=== PATIENT | male | born 1945 | race Caucasian/White ===

== ENCOUNTER → 2017-12-17 09:35 | Outpatient (CLI) | payer MEDICARE, BC ==
--- NOTE | ~2017-12-17 | EC ---
PATIENT:CORY PORRAS DATE OF SERVICE: 12/17/17 SEX: M MEDICAL RECORD: [id number] DATE OF : 41 [facility] AGE OF PATIENT: 71 ADMISSION DATE: 12/17/17 REFERRING PHYSICIAN: INTERPRETING PHYSICIAN: DAVIN GREER MD ECHOCARDIOGRAM REPORT ECHO CHARGES 4 ECHO COMPLETE Date: 12/17 CLINICAL DIAGNOSIS: STARTING CHEMO, ASSESS EF AND VALVES ECHOCARDIOGRAPHIC MEASUREMENTS (adult normal given) AC root (d.<3.7cm) 4.2 cm LV Septum d (<1.2 cm> 2.0 cm Valve Excursion 2.1 cm LV Septum (systole) 2.3 cm Left Atria (s.<4.0cm> 4.9 cm LVPW d(<1.2cm) 1.8 cm RV (d.<2.3cm) 3.8 cm LVPW (sytole) 21.5 cm LV diastole(<5.6CM) 5.3 cm MV E-F(>70mm/sec) cm LV systole 3.8 cm LVOT Diameter 2.1 cm MV exc.(>10mm) 1.4 cm Est.ejection fraction (50-75%) % DOPPLER: LVIT cm/sec A 84.0 cm/sec E 62.0 cm/sec LA cm/sec RVSP 31 mmHg LVOT 129 cm/sec AOP1/2T m/s Asc. Ao 140 cm/sec RVOT 91 cm/sec RA cm/sec PA 196 cm/sec AV Gradient Peak 7.89 mmHg AV Mean 3.93 mmHg AV Area 3.2 cm MV Gradient Peak 3.95 mmHg MV Mean 1.20 mmHg MV Area cm COMMENTS: Bookstore Manager: Len LEUNG Supervisor Long Goods: 2 Dr. Barton TAPE# PACS Pericardial Effusion N DATE OF SERVICE: 12/17/2017 PROCEDURE: Echocardiogram. FINDINGS: 1. Left ventricular chamber size is within normal limits. Left ventricular systolic function is normal. Overall ejection fraction estimated at 60%. 2. Left atrium is enlarged at 4.9 cm. Right atrium and right ventricle chamber sizes are as well mildly dilated. 3. Valvular structures have normal structure and motion. ECHOCARDIOGRAM REPORT [id number] CORY PORRAS 4. Doppler interrogation only reveals mild tricuspid regurgitation, no other valvular insufficiency or stenosis. 5. No evidence of pericardial effusion or left ventricular thrombus. TRANSINT:[id number] Voice Confirmation ID: [id number] DOCUMENT ID: [id number] DAVIN GREER MD at 1849 CC: [id number] DICTATION DATE: 12/17/17 1308 NEUROPHYSIOLOGIST: 12/17/17 1716 DEP CLI 12/17/17 [facility] [address] [id number]
== END | disposition home or self-care (01) ==
LOC: D.ECHO 09:35
DX: C61 Malignant neoplasm of prostate (principal); Z51.11 Encounter for antineoplastic chemotherapy